=== PATIENT | female | born 1945 | race African-American/Black ===

== ENCOUNTER 2022-05-29 15:14 | Emergency (ER) | payer OTHER, MEDICAID ==
[~2022-05-29] VITALS: Ht 167.6 cm; Wt 63.0 kg
[~2022-05-29 15:14] MED LIST: AMLO10TA80; HYDR200T35; NORT50CA; OMEP20CA4
[2022-05-29 16:52] LABS: BASOPHILS % 0.9 % (0.0-2.0); EOSINOPHILS % 0.5 % (0.0-5.0); HEMOGLOBIN. 12.3 g/dL (12.0-16.0); LYMPHOCYTES % 20.6 % (20.0-50.0); MEAN CORPUSCULAR HEMOGLOBIN 28.7 pg (28.0-32.0); MEAN CORPUSCULAR VOLUME 84.3 fL (81.0-99.0); MEAN PLATELET VOLUME 8.1 fl (7.4-10.4); MONOCYTES % 11.7 % (2.0-8.0); NEUTROPHILS % 66.3 % (40.0-76.0); PLATELET 141 x1000/uL (130-400); RED BLOOD CELL COUNT 4.27 mill/uL (4.2-5.4); RED CELL DISTRIBUTION WIDTH 15.2 % (11.6-14.6)
[2022-05-29 17:00] LABS: CHLORIDE 99 mEq/L (98-107)
[2022-05-29 17:09] LABS: INR 1.2; PROTHROMBIN TIME 12.7 sec (9.6-11.0)
[2022-05-29] MEDS ORDERED: NITROGLYCERIN 0.4MG TABLET SL SL ONE (17:45)
[2022-05-29] MEDS ORDERED: ASPIRIN 325MG EC TABLET PO ONE (17:45)
[2022-05-29] MEDS ORDERED: DEXTROSE 50% WATER 50ML SYRINGE IV ONE (19:00)
[2022-05-29] MEDS ORDERED: CARVEDILOL 12.5MG TABLET PO ONE (21:45)
[2022-05-29] MEDS ORDERED: HYDROXYCHLOROQUINE SULFATE 200MG TABLET PO ONE (21:45)
[2022-05-29 23:00] VITALS: BP 186/84
[2022-05-30] MEDS ORDERED: ATORVASTATIN CALCIUM 20MG TABLET PO SCH (21:00)
== END 2022-05-29 23:37 | disposition short-term general hospital (02) ==
LOC: ER 15:14
DX: E11.22 Type 2 diabetes mellitus with diabetic chronic kidney disease (principal); I12.0 Hypertensive chronic kidney disease with stage 5 chronic kidney disease or end stage renal disease; N18.6 End stage renal disease; R51.9 Headache, unspecified; Z20.822 Contact with and (suspected) exposure to COVID-19
CPT/HCPCS: 36415; 70450; 71045; 80053; 82962; 83605; 83880; 84145; 84484; 85025; 85610; 87040; 87426; 93005; 96374; 99285; C9803

== ENCOUNTER 2022-12-01 17:34 | Inpatient (IN) | payer OTHER, MEDICAID ==
[~2022-12-01] VITALS: Ht 157.5 cm; Wt 55.3 kg
[~2022-12-01 17:34] MED LIST changes: -HYDR200T35; +HYDR200T35 PO; -OMEP20CA4; +OMEP20CA4 PO
[2022-12-01] MEDS ORDERED: DEXTROSE 50% WATER 50ML SYRINGE IV ONE (19:00)
[2022-12-01 19:03] LABS: BASOPHILS % 1.1 % (0.0-2.0); EOSINOPHILS % 0.7 % (0.0-5.0); HEMATOCRIT. 36.7 % (36.0-48.0); HEMOGLOBIN. 12.1 g/dL (12.0-16.0); LYMPHOCYTES % 31.3 % (20.0-50.0); MEAN CORPUSCULAR HEMOGLOBIN 27.8 pg (28.0-32.0); MEAN CORPUSCULAR VOLUME 84.2 fL (81.0-99.0); MEAN PLATELET VOLUME 8.1 fl (7.4-10.4); NEUTROPHILS % 54.9 % (40.0-76.0); PLATELET 111 x1000/uL (130-400); RED BLOOD CELL COUNT 4.35 mill/uL (4.2-5.4); RED CELL DISTRIBUTION WIDTH 15.8 % (11.6-14.6); WHITE BLOOD COUNT 2.8 x1000/uL (4.5-11.0)
[2022-12-01 19:13] LABS: INR 1.1; PROTHROMBIN TIME 11.9 sec (9.6-11.0)
[2022-12-01 19:15] LABS: CHLORIDE 98 mEq/L (98-107); INDEX HEMOLYSI 3 (1-3); INDEX ICTERIC 1 (1-4); INDEX LIPEMIC 1 (1-3); POTASSIUM 3.6 mEq/L (3.5-5.1); SODIUM 136 mEq/L (136-145)
[2022-12-01 19:27] LABS: ALANINE AMINOTRANSFERASE 28 IU/L (13-61); ASPARTATE AMINOTRANSFERASE 36 IU/L (15-37); BILIRUBIN TOTAL 0.9 mg/dL (0.1-1.0); CALCIUM 8.5 mg/dL (8.5-10.1); CARBON DIOXIDE 30 mEq/L (21-32); ETHANOL BLOOD < 10 mg/dL (<10); GLUCOSE 68 mg/dL (70-105); PROTEIN TOTAL 8.6 g/dL (6.0-8.3); UREA NITROGEN BLOOD 29 mg/dL (7-21)
[2022-12-01 19:33] LABS: CREATININE 6.9 mg/dL (0.6-1.3); TROPONIN I HIGH SENSITIVITY 96 ng/L (<54)
[2022-12-01] MEDS ORDERED: ENOXAPARIN 60MG/0.6ML SYR SUBCUT NR (19:44)
[2022-12-01 20:17] LABS: TROPONIN I HIGH SENSITIVITY 92 ng/L (<54)
[2022-12-01 23:41] LABS: TROPONIN I HIGH SENSITIVITY 101 ng/L (<54)
[2022-12-02 15:54] LABS: CLARITY URINE TURBID (CLEAR); COLOR URINE YELLOW (YELLOW); GLUCOSE URINE NEGATIVE (NEGATIVE); KETONES URINE NEGATIVE (NEGATIVE); LEUKOCYTE ESTERASE URINE 1+ (NEGATIVE); NITRITE URINE NEGATIVE (NEGATIVE); OCCULT BLOOD URINE 1+ (NEGATIVE); PH URINE 8.5 (4.5-8.0); PROTEIN URINE 2+ (NEGATIVE); SPECIFIC GRAVITY URINE 1.021 (1.005-1.030)
[2022-12-02 16:08] LABS: *AMPHETAMINES SCREEN URINE NEGATIVE (NEGATIVE); *BARBITURATES SCREEN URINE NEGATIVE (NEGATIVE); *BENZODIAZEPINES SCREEN URINE NEGATIVE (NEGATIVE); *COCAINE SCREEN URINE NEGATIVE (NEGATIVE); CANNABINOID URINE SCREEN NEGATIVE (NEGATIVE); ECSTASY MDMA SCREEN URINE NEGATIVE (NEGATIVE); OPIATES URINE SCREEN NEGATIVE (NEGATIVE); PHENCYCLIDINE URINE SCREEN NEGATIVE (NEGATIVE)
[2022-12-02 16:11] LABS: SQUAMOUS EPITHELIAL CELL URINE 3+ /lpf (RARE/1+)
[2022-12-02 16:12] LABS: RBC URINE 0-2 /hpf (0-2)
[2022-12-02 16:13] LABS: BACTERIA URINE 4+
[2022-12-02] MEDS ORDERED: LORAZEPAM 2MG/ML CPJ IV NR (19:15)
[2022-12-02] MEDS ORDERED: SODIUM CHLORIDE 0.9% 1,000 ML IV SCH (23:45)
[2022-12-02] MEDS ORDERED: CEFEPIME 1,000 MG in DEXTROSE 5% WATER 50 ML IV NR (23:45)
[2022-12-02] MEDS ORDERED: CLONIDINE 0.1MG TABLET PO PRN (23:45)
[2022-12-02] MEDS ORDERED: ONDANSETRON HCL 4MG/2ML INJ IV PRN (23:45)
[2022-12-03 01:30] VITALS: BP 147/65; PULSE 71; RESP 18; TEMP 97.7
[2022-12-03] MEDS ORDERED: CARV25TA47 MT (02:02)
[2022-12-03] MEDS ORDERED: TOPUD PO (02:02)
[2022-12-03] MEDS ORDERED: VITA1CAP16 PO (02:02)
[2022-12-03] MEDS ORDERED: ATOR20TA MT (02:02)
[2022-12-03 05:45] LABS: HEMATOCRIT. 38.6 % (36.0-48.0); HEMOGLOBIN. 12.8 g/dL (12.0-16.0); MEAN CORPUSCULAR HEMOGLOBIN 28.6 pg (28.0-32.0); MEAN CORPUSCULAR HGB CONC 33.2 g/dL (31.0-37.0); MEAN PLATELET VOLUME 8.4 fl (7.4-10.4); PLATELET 128 x1000/uL (130-400); RED BLOOD CELL COUNT 4.49 mill/uL (4.2-5.4); RED CELL DISTRIBUTION WIDTH 15.7 % (11.6-14.6); WHITE BLOOD COUNT 3.2 x1000/uL (4.5-11.0)
[2022-12-03] MEDS ORDERED: DEXTROSE 50% WATER 50ML SYRINGE IV PRN (05:45)
[2022-12-03] MEDS: BLOOD SUGAR DIAGNOSTIC STRIP TEST SCH ×4 (06:33→20:52)
[2022-12-03] MEDS: INSULIN LISPRO 100 UNITS/ML SUBCUT SCH ×4 (06:33→20:53)
[2022-12-03 06:35] LABS: DIFFERENTIAL COMMENT 1
[2022-12-03 06:36] LABS: CALCIUM 8.5 mg/dL (8.5-10.1); POTASSIUM 4.5 mEq/L (3.5-5.1)
[2022-12-03 06:45] LABS: CREATINE KINASE MB FRACTION 2.7 ng/mL (0.5-3.6)
[2022-12-03 06:54] LABS: CREATININE 10.6 mg/dL (0.6-1.3)
[2022-12-03 12:59] LABS: HEPATITIS C VIR.AB 0.11 INDEXVAL (0.00-0.80)
[2022-12-03 13:00] LABS: HEPATITIS B CORE AB IGM NEGATIVE
[2022-12-03 13:02] LABS: HEPATITIS A AB IGM NEGATIVE (NEGATIVE)
[2022-12-03 16:25] LABS: CREATINE KINASE MB FRACTION 2.6 ng/mL (0.5-3.6)
[2022-12-03 17:58] LABS: HEPATITIS B SURFACE ANTIGEN NEGATIVE
[2022-12-03 18:44] LABS: PLATELET ESTIMATE DECREASED
[2022-12-03 20:00] VITALS: BP 122/63; PULSE 109; RESP 19; TEMP 97.8
[2022-12-03] MEDS: ATORVASTATIN CALCIUM 20MG TABLET PO SCH (20:52)
[2022-12-03] MEDS: CEFEPIME 500 MG in DEXTROSE 5% WATER 50 ML IV SCH (20:53)
[2022-12-04] VITALS (12 sets, daily range): BP systolic 106–137; BP diastolic 53–80; PULSE 70–113; RESP 16–18; TEMP 97–98.1
[2022-12-04] MEDS: ACETAMINOPHEN 325MG TABLET PO PRN ×3 (03:02→22:37)
[2022-12-04 06:42] LABS: HEMATOCRIT. 32.7 % (36.0-48.0); MEAN CORPUSCULAR HEMOGLOBIN 28.4 pg (28.0-32.0); MEAN CORPUSCULAR HGB CONC 33.6 g/dL (31.0-37.0); MEAN CORPUSCULAR VOLUME 84.4 fL (81.0-99.0); MEAN PLATELET VOLUME 8.5 fl (7.4-10.4); PLATELET 123 x1000/uL (130-400); RED BLOOD CELL COUNT 3.87 mill/uL (4.2-5.4); RED CELL DISTRIBUTION WIDTH 15.7 % (11.6-14.6); WHITE BLOOD COUNT 3.1 x1000/uL (4.5-11.0)
[2022-12-04] MEDS: BLOOD SUGAR DIAGNOSTIC STRIP TEST SCH ×4 (07:07→21:25)
[2022-12-04 07:34] LABS: DIFFERENTIAL COMMENT 1
[2022-12-04 07:56] LABS: POTASSIUM 4.2 mEq/L (3.5-5.1)
[2022-12-04] MEDS: INSULIN LISPRO 100 UNITS/ML SUBCUT SCH ×4 (07:58→21:00)
[2022-12-04 08:01] LABS: CALCIUM 8.1 mg/dL (8.5-10.1)
[2022-12-04] MEDS ORDERED: NALOXONE HCL 0.4MG/ML VIAL IV PRN (13:00)
[2022-12-04 13:29] LABS: ANISOCYTOSIS 1+; PLATELET ESTIMATE SLIGHTLY DECREASED
[2022-12-04] MEDS: HYDROCODONE/ACETAMINOPHEN 5/325MG TABLET PO PRN ×2 (14:38→19:53)
[2022-12-04] MEDS: ATORVASTATIN CALCIUM 20MG TABLET PO SCH (21:26)
[2022-12-04] MEDS: CEFEPIME 500 MG in DEXTROSE 5% WATER 50 ML IV SCH (21:28)
[2022-12-04] MEDS: DIPHENHYDRAMINE 50MG CAPSULE PO PRN (22:37)
[2022-12-05] VITALS: BP 134/61; PULSE 73; RESP 18; TEMP 97.5
[2022-12-05] MEDS: HYDROCODONE/ACETAMINOPHEN 5/325MG TABLET PO PRN ×2 (00:08→05:29)
[2022-12-05 04:00] VITALS: BP 113/56; PULSE 114; RESP 18; TEMP 98.2
[2022-12-05] MEDS: INSULIN LISPRO 100 UNITS/ML SUBCUT SCH ×2 (06:16→12:08)
[2022-12-05] MEDS: BLOOD SUGAR DIAGNOSTIC STRIP TEST SCH ×2 (06:16→12:08)
[2022-12-05 08:00] VITALS: BP 128/56; PULSE 72; RESP 18; TEMP 97.6
[2022-12-05] MEDS: DIPHENHYDRAMINE 50MG CAPSULE PO PRN (09:15)
[2022-12-05 12:00] VITALS: BP 136/84; PULSE 75; RESP 20; TEMP 97.7
[2022-12-05 13:26] VITALS: BP 136/84; PULSE 75; TEMP 97.7; O2SAT 95
== END 2022-12-05 16:16 | disposition home or self-care (01) | DRG 637 ==
LOC: ER 17:34 → MICUSO 22:02 → EDBEDREQTM 22:26 → EDBEDREQ 22:26 → 7WST 12-03 00:55
PROVIDERS: ADMIT Internal Medicine; ATTEND Internal Medicine
PROC: 5A1D70Z Performance of Urinary Filtration, Intermittent, Less than 6 Hours Per Day (ICD-10-PCS; principal; 2022-12-04)
DX: E11.649 Type 2 diabetes mellitus with hypoglycemia without coma (principal); G93.41 Metabolic encephalopathy; I12.0 Hypertensive chronic kidney disease with stage 5 chronic kidney disease or end stage renal disease; R47.01 Aphasia; G82.20 Paraplegia, unspecified; G81.94 Hemiplegia, unspecified affecting left nondominant side; R55 Syncope and collapse; N18.6 End stage renal disease; D64.9 Anemia, unspecified; D72.819 Decreased white blood cell count, unspecified; E11.22 Type 2 diabetes mellitus with diabetic chronic kidney disease; R29.709 NIHSS score 9; Z99.2 Dependence on renal dialysis; Z91.048 Other nonmedicinal substance allergy status; E78.00 Pure hypercholesterolemia, unspecified
CPT/HCPCS: 36415; 70496; 70498; 71045; 80048; 80053; 80061; 80305; 80320; 81003; 82550; 82553; 82962; 83036; 84484; 85025; 86705; 86709; 86803; 87340; 90935; 93005; 93306; 93970; 99291; A6261; C1893; J0692; J1650; J2060; J7060; Q0163; Q9967; G0480

== ENCOUNTER 2024-03-31 13:15 | Emergency (ER) | payer OTHER, MEDICAID ==
[~2024-03-31] VITALS: Ht 165.1 cm; Wt 64.0 kg
[~2024-03-31 13:15] MED LIST changes: +ATOR20TA MT; +CARV25TA47 MT; +TOPUD PO; +VITA1CAP16 PO
[2024-03-31 13:17] VITALS: O2SAT 100
[2024-03-31] MEDS ORDERED: CALCIUM GLUCONATE 1,000 MG in DEXT 5% WATER 100 ML IV ONE (15:30)
[2024-03-31 15:36] VITALS: TEMP 36.4
[2024-03-31] MEDS: SODIUM BICARBONATE 8.4% 50MEQ/50ML SYR IV ONE (16:21)
[2024-03-31] MEDS: ONDANSETRON HCL 4MG/2ML INJ IV ONE (16:21)
[2024-03-31] MEDS: CALCIUM GLUCONATE 1GM PREMIX 50 ML IV NR (16:21)
[2024-03-31 16:50] LABS: BASOPHILS % 0.4 % (0.0-2.0); EOSINOPHILS % 0.7 % (0.0-5.0); HEMATOCRIT. 29.3 % (36.0-48.0); HEMOGLOBIN. 9.4 g/dL (12.0-16.0); INR 1.1; LYMPHOCYTES % 24.2 % (20.0-50.0); MEAN CORPUSCULAR HEMOGLOBIN 27.8 pg (28.0-32.0); MEAN CORPUSCULAR HGB CONC 32.1 g/dL (31.0-37.0); MEAN CORPUSCULAR VOLUME 86.6 fL (81.0-99.0); MEAN PLATELET VOLUME 7.8 fl (7.4-10.4); MONOCYTES % 9.6 % (2.0-8.0); NEUTROPHILS % 65.1 % (40.0-76.0); PLATELET 139 x1000/uL (130-400); PROTHROMBIN TIME 11.7 sec (9.6-11.0); RED BLOOD CELL COUNT 3.38 mill/uL (4.2-5.4); WHITE BLOOD COUNT 4.1 x1000/uL (4.5-11.0)
[2024-03-31 16:51] LABS: ADD RBC MORPHOLOGY YES; DIFFERENTIAL COMMENT 1
[2024-03-31 16:52] LABS: CHLORIDE 105 mEq/L (98-107); POTASSIUM 5.1 mEq/L (3.5-5.1); SODIUM 146 mEq/L (136-145)
[2024-03-31 16:53] LABS: CARBON DIOXIDE 28 mEq/L (21-32)
[2024-03-31 16:54] LABS: CALCIUM 7.4 mg/dL (8.7-10.4)
[2024-03-31 16:58] LABS: GLUCOSE 97 mg/dL (70-105)
[2024-03-31 16:59] LABS: UREA NITROGEN BLOOD 82 mg/dL (9-23)
[2024-03-31 17:00] LABS: ALANINE AMINOTRANSFERASE 16 IU/L (10-49); ALBUMIN 2.8 g/dL (3.2-4.8); ASPARTATE AMINOTRANSFERASE 26 IU/L (<34)
[2024-03-31 17:01] LABS: BILIRUBIN DIRECT 0.1 mg/dL (<=3.0); BILIRUBIN TOTAL 0.3 mg/dL (0.1-1.0); PROTEIN TOTAL 6.1 g/dL (6.0-8.3)
[2024-03-31 17:08] LABS: CREATININE 11.8 mg/dL (0.6-1.0); TROPONIN I HIGH SENSITIVITY 53 ng/L (3.0-34)
[2024-03-31] MEDS ORDERED: CEFTRIAXONE 2GM/50ML 50 ML IV ONE (18:15)
[2024-03-31] MEDS ORDERED: METRONIDAZOLE 500 MG PREMIX 100 ML IV ONE (18:15)
[2024-03-31] MEDS ORDERED: NALOXONE HCL 0.4MG/ML VIAL IV PRN (18:45)
[2024-03-31] MEDS ORDERED: ONDANSETRON HCL 4MG/2ML INJ IV PRN (18:45)
[2024-03-31] MEDS ORDERED: HYDROCODONE/ACETAMINOPHEN 5/325MG TABLET PO PRN (18:45)
[2024-03-31 18:57] LABS: ANISOCYTOSIS 2+; HYPOCHROMASIA 1+; OVALOCYTES 1+; PLATELET ESTIMATE NORMAL
[2024-03-31 20:03] VITALS: BP 133/48; PULSE 76; RESP 16; O2SAT 99
== END 2024-03-31 19:45 | disposition short-term general hospital (02) ==
LOC: ER 13:15 → EDBEDREQ 15:18 → CANBEDREQ 18:14 → ER 19:45
DX: K80.70 Calculus of gallbladder and bile duct without cholecystitis without obstruction (principal); K80.50 Calculus of bile duct without cholangitis or cholecystitis without obstruction; I21.4 Non-ST elevation (NSTEMI) myocardial infarction; E11.22 Type 2 diabetes mellitus with diabetic chronic kidney disease; I12.0 Hypertensive chronic kidney disease with stage 5 chronic kidney disease or end stage renal disease; N18.6 End stage renal disease; Z99.2 Dependence on renal dialysis; Z79.899 Other long term (current) drug therapy; Z88.8 Allergy status to other drugs, medicaments and biological substances; Z88.6 Allergy status to analgesic agent
CPT/HCPCS: 80076; 80048; 83880; 83690; 85025; 85610; 86850; 86900; 86901; 84484; 36415; 71045; 74176; 76700; 93005; 96365; 96375; 99291; J0610; J3490 ×2; J2405; J0696; J7060

== ENCOUNTER 2025-01-05 16:10 | Emergency (ER) | payer OTHER, MEDICAID ==
[~2025-01-05] VITALS: Ht 157.5 cm; Wt 55.0 kg
[2025-01-05 16:12] VITALS: O2SAT 96
[2025-01-05 16:46] VITALS: TEMP 37.2
[2025-01-05 17:05] LABS: BASOPHILS % 1.0 % (0.0-2.0); EOSINOPHILS % 0.8 % (0.0-5.0); HEMATOCRIT. 28.9 % (36.0-48.0); HEMOGLOBIN. 9.2 g/dL (12.0-16.0); LYMPHOCYTES % 31.2 % (20.0-50.0); MEAN PLATELET VOLUME 8.0 fl (7.4-10.4); MONOCYTES % 8.3 % (2.0-8.0); NEUTROPHILS % 58.7 % (40.0-76.0); PLATELET 168 x1000/uL (130-400); RED BLOOD CELL COUNT 3.10 mill/uL (4.2-5.4); RED CELL DISTRIBUTION WIDTH 19.7 % (11.6-14.6)
[2025-01-05 17:12] VITALS: TEMP 98.9
[2025-01-05 17:23] LABS: CREATININE 4.1 mg/dL (0.6-1.0); UREA NITROGEN BLOOD 13 mg/dL (9-23)
[2025-01-05 17:25] LABS: ASPARTATE AMINOTRANSFERASE 40 IU/L (<34); BILIRUBIN DIRECT < 0.1 mg/dL (<=3.0); BILIRUBIN TOTAL 0.3 mg/dL (0.1-1.0); PROTEIN TOTAL 6.5 g/dL (6.0-8.3)
[2025-01-05 17:49] LABS: TROPONIN I HIGH SENSITIVITY 67 ng/L (3.0-34)
[2025-01-05] MEDS: SODIUM CHLORIDE 0.9% 250 ML IV ONE (19:35)
[2025-01-05] MEDS: LACTULOSE 20G/30ML UDC PO ONE (19:37)
[2025-01-05 20:41] LABS: TROPONIN I HIGH SENSITIVITY 75 ng/L (3.0-34)
[2025-01-05 21:00] VITALS: BP 127/56; PULSE 68; RESP 16; O2SAT 99
== END 2025-01-05 21:08 | disposition home or self-care (01) ==
LOC: ER 16:10 → CMPBEDREQ 01-06 07:19
DX: E87.8 Other disorders of electrolyte and fluid balance, not elsewhere classified (principal); N18.6 End stage renal disease; I12.0 Hypertensive chronic kidney disease with stage 5 chronic kidney disease or end stage renal disease; Z79.899 Other long term (current) drug therapy; Z88.6 Allergy status to analgesic agent; Z88.8 Allergy status to other drugs, medicaments and biological substances; Z91.048 Other nonmedicinal substance allergy status; Z99.2 Dependence on renal dialysis
CPT/HCPCS: 36415; 71045; 80048; 80076; 82140; 84484; 85025; 96360; 99285; J7050